=== PATIENT | male | born 1940 | race Caucasian/White ===

== ENCOUNTER 2017-03-04 17:50 | Emergency (ER) | payer MEDICARE, OTHER ==
[~2017-03-04] VITALS: Ht 172.7 cm; Wt 70.9 kg
[~2017-03-04 17:50] MED LIST: ASPI81TA2 PO; MTP50TCR PO; [UNRECOGNIZED DRUG - CODE] PO; [UNRECOGNIZED DRUG - CODE] PO
[2017-03-04 18:26] VITALS: BP 138/76; PULSE 76; RESP 16; O2SAT 95
--- NOTE | 2017-03-04 18:36 | ED.REPORT ---
HPI-Neurologic Deficit Date of Service Mar 04, 2017 ED Provider: Dr. Lopes A 77 year old male with a history of stroke,seizures, and HTN presents to the ED from Dr. Negrito Brody's office after undergoing an MRI that showed large subacute hematoma involving right parietal-temporal lobes. Hematoma may be related to hypertensive bleed, but the patient was sent to the ED to make sure that everything is Ok. The patient originally saw Dr. Brody today with concern for TIA because of a severe headache that onset one week ago and was accompanied by confusion, symptoms having since been resolved. Patient denies any confusion right now. The patient had a stroke on 02/02/2017, the patient being found by his in bed at 1500 with confusion but no left-sided weakness. Nursing Notes Stated Complaint: HAD MRI EARLIER, WAS TO LD BY DR BRODY TO COME Chief Complaint: General Complaint Allergies: Coded Allergies: No Known Allergies (Unverified Allergy, Unknown, 03/04/17) Scheduled Aspirin-Expunged Drug, Do Not Renew! (Aspirin-Expunged Drug, Do Not Renew!) 81 Mg Tab 81 MG PO DAILY Metoprolol Suc-Expunged Drug, Do Not Renew! (Metoprolol Suc-Expunged Drug, Do Not Renew!) 50 Mg Tber 50 MG PO DAILY TELMISARTAN-Expunged Drug, Do Not Renew! (Micardis-Expunged Drug, Do Not Renew! ) 80 Mg Tab 80 MG PO DAILY hyDRALazine-Expunged Drug, Do Not Renew! (hyDRALazine-Expunged Drug, Do Not Renew!) 25 Mg Tablet 25 MG PO TID General Time Seen by Provider: 18:36 Chief Complaint Other (Headache) Hx Obtained From: Patient, Spouse Arrived By: Walk-in Sudden in Onset?: No Onset Occurred: 1 week ago Symptom Duration: Duration unknown Progression Since Onset: Resolved Severity: Current: No pain currently Severity: Maximum: No pain Recent Healthcare: Recent doctor visit ([facility] ) Risk Factors NIH Stroke Scale Level of Consciousness: Alert and responsive (0) Ask Month & Age: Both questions right (0) Open/Close Eyes/Hand Drafter Castings: Performs both tasks (0) Visual Hernandez: No visual loss (0) Facial Palsy: Normal symmetry (0) Right Arm Motor Drift (10s): No drift 10 sec (0) Left Arm Motor Drift (10s): No drift 10 sec (0) Right Leg Motor Drift (5s): No drift 5 sec (0) Left Leg Motor Drift (5s): No drift 5 sec (0) Limb Ataxia FNF/Heel-Sawant: No ataxia (0) Sensation (Arms/Legs/Face): No sensory loss (0) Language Aphasia: No aphasia, normal (0) Dysarthria: No dysarthria, normal (0) Extinction/Inattention: No exctinct/inattent (0) NIHSS Score: 0 Time NIHSS Performed: 18:36 Date NIHSS Performed: Mar 04, 2017 Past Medical History Past Medical History Notes: Patient sees Dr. Negrito Brody,neurologist, for seizure treatment. Past Medical History Mild right sided tremor. Stroke on 02/02/2017. Occured at home, not in hospital. TIA. Patient takes Levetiracetam-po 500mg, 1 2x/day. Hydralazine 25mg, 1 3x/day. Metoprolol SUC 100mg, [toprol XL 100mg] 1/2 1x /day Micardis 40mg, 2 1x day Reports: Hypertension, Stroke Reports: Seizure disorder (Patient reports seizures denies that he has epilepsy. Takes medication for seizures.) Past Surgical History none reported. Ambulatory Status Independent Review of Systems Review of Systems Note: VIsited ED for concerning MRI result. Constitutional: Denies: Chills, Fever Neurologic: Reports: Headache (1 week ago, but since resolved.), Denies: Confusion Complete sys rev & neg: except as marked. Physical Exam Initial Vital Signs Vital Signs (First) Date Time Temp Pulse Resp B/P Pulse Ox O2 Delivery O2 Flow Rate FiO2 03/04/17 18:26 36.8 76 16 138/76 95 Room Air Initial VS: Reviewed General/Constitutional: Awake, Alert Head / Eyes: Atraumatic, Normocephalic, PERRL, EOMI Respiratory / Chest: Atraumatic, Breath sounds NL, Breath sounds = bilat, No respiratory distress, No rales, No rhonchi, No wheezing Cardiovascular: Heart rate NL, Regular rhythm, Heart sounds NL, No gallop, No murmurs, No rubs Neurologic: Oriented X3, Speech NL Neurologic exam is normal. NIH stroke Scale Score is Zero. ENT: Atraumatic, Airway patent Neck: Atraumatic, Non-tender Abdomen: No guarding, No rebound Upper Extremity / MS: No swelling, No edema Skin: Atraumatic, Color NL, Warm, Dry Interpretation & Diagnostics Lab Results Interpretation Result Diagram: 03/04/170 03/04/171899 Test 03/04/17 19:00 03/04/17 19:18 White Blood Count 6.6th/mm3 (3.8-10.1) Red Blood Count 4.68mil/mm3 (4.40-5.80) Hemoglobin 14.6g/dL (13.8-17.2) Hematocrit 42.9% (41.0-50.0) Mean Corpuscular Volume 91.7fL (81-100) Mean Corpuscular Hemoglobin 31.2pg (27.0-35.0) Mean Corpuscular Hemoglobin Concent 34.0% (32.0-37.0) Red Cell Distribution Width 13.0% (12.3-15.4) Platelet Count 205bil/L (150-400) Neutrophils (%) (Auto) 76.3% (40-74) Lymphocytes (%) (Auto) 12.5% (14-46) Monocytes (%) (Auto) 9.0% (4-12) Eosinophils (%) (Auto) 1.7% (0-5) Basophils (%) (Auto) 0.3% (0-3) Prothrombin Time 10.4sec (8.1-12.5) Prothromb Time International Ratio 0.97ratio Sodium Level 132mEq/L (134-144) Potassium Level 4.2mEq/L (3.5-5.2) Chloride Level 96mEq/L (97-108) Carbon Dioxide Level 22mmol/L (18-29) Blood Urea Nitrogen 14mg/dL (8-27) Creatinine 0.77mg/dL (0.76-1.27) Estimat Glomerular Filtration Rate 104mL/min (>59) Glucose Level 129mg/dL (60-99) Calcium Level 9.8mg/dL (8.5-10.1) Total Bilirubin 0.8mg/dL (0.0-1.2) Aspartate Amino Transf (AST/SGOT) 20U/L (0-50) Alanine Aminotransferase (ALT/SGPT) 12U/L (0-44) Alkaline Phosphatase 46U/L (25-160) Total Protein 7.7g/dL (6.4-8.4) Albumin 4.7g/dL (3.4-5.0) Hold Purple Top Tube Received (Received) Hold Blue Top Tube Received (Received) Hold Red Top Tube Received (Received) Hold [place] Top Tube Received (Received) Hold Byrd Top Tube Received (Received) Lab Results Interpretation: PROCEDURE: MRI STROKE PROTOCOL ([id number]) IMPRESSION: Brain MRI 1.Large, subacute hematoma involving the right parietal-temporal lobes. Hematoma may be related to hypertensive bleed, however, neither underlying neoplastic process nor vascular malformation can be excluded without follow up imaging. 2. Mild, diffuse mild loss. 3. Mild to moderate periventricular and subcortical white matter chronic microvascular ischemic changes. 4. Old, small, left thalamic lacunar infarct. BRAIN MR ANGIOGRAM: Negative examination. NECK MR ANGIOGRAM: Negative examination. Findings telephoned to Dr. Negrito Brody on 03/04/17 at 1619 hours. Dictated by: Lauryn Hope MD, PhD on 03/04/2017 at 16:05. Approved by:Lauryn Hope MD, PhD on 03/04/2017 at 16:26. Re-Eval/Medical Decision Med Decision/Clinical Course 77-year-old male was evaluated by his neurologist today. Evidently he had a confusional episode last week associated with headache. Symptoms resolved. His neurologist Dr. Brody performed a stroke protocol MRI. The MRI demonstrated a large right temporoparietal intraparenchymal hemorrhage. He is referred to her department for definitive disposition. Mr. Lemus is awake alert oriented 4. His GCS is 15. His stroke scale is 0. His vitals have been stable. He is not excessively hypertensive. His blood pressure currently 138 systolic. Beyond that his exam is very benign. MRI results reviewed. Case discussed with Dr. Phoenix [facility] neurologist. We will be transferring Mr. Lemus to the [facility] emergency department with accepting M.Chrissy. in the ER is Dr. Pina. We will push the MRI results and send copies of the labs as well. Source of Hx: Old records Re-Evaluation/Progress #1: Time of Eval: 18:36 Re-Evaluation/Progress Note: Explaind Dr. Brody's MRI result to the patient. Re-Evaluation/Progress #2: Time of Eval: 19:21 Re-Evaluation/Progress Note: Rechecked patient and explained plan to transfer to [facility]. Patient uunderstands and agrees with the plan. All questions addressed. Consultation #1: Call Returned at: 19:07 Combination Machine Tender: Agrees with eval, Agrees with plan Note: Discussed patient case with Dr. Jamila Phoenix, Nuerologist, at [facility] who agrees to have patient transferred to [facility]. Consultation #2: Call Returned at: 19:19 Note: Discussed patient case with [facility]. Dr. Carmen Pina will be accepting physician at [facility]. . Counseled Regarding: Diagnosis, Lab results, Need for follow-up, When/why to return to ED Discharge & Departure Shift Change Sign-Out Response to Therapy: Improved Impression: Primary Impression: Intraparenchymal hematoma of brain Encounter type: initial encounter Laterality: right Loss of consciousness presence/duration: without LOC Qualified Code: S06.340A - Traumatic hemorrhage of right cerebrum without loss of consciousness, initial encounter Disposition: Transfer, Acute Care Facility Transfer Requested at: 19:07 Call returned time Transfer Accepted: Yes Transfer Accepted at: 19:07 Transfer Reason: Higher level of care Spoke with: Specialty physician (Dr. Jamila Phoenix) Patient Status: Stable Patient Informed: Yes Discharge Condition All VS Reviewed: Yes Condition: Stable Referrals: NOPCP (PCP) Crit Care Except Billable Proc Time Spent: 30-74 minutes (60 minutes) Songibe Attestation Portions of this note were transcribed by Jason Kumar. I, Dr. Lopes personally performed the history, physical exam and medical decision-making; I reviewed and confirmed the accuracy of the information in the transcribed note. Signed by: Enoc Hood, 03/04/2017, 1935. copies to: Negrito Brody MD, Todd P DO Mar 04, 2017 18:36 Jason Kumar Mar 04, 2017 18:45
[2017-03-04 19:09] LABS: BASOPHILS % (AUTO) 0.3 % (0-3); EOSINOPHILS % (AUTO) 1.7 % (0-5); Mean Corpuscular Hemoglobin 31.2 pg (27.0-35.0); Mean Corpuscular Volume 91.7 fL (81-100); NEUTROPHILS % (AUTO) 76.3 % (40-74); Platelet Count 205 bil/L (150-400)
[2017-03-04 19:26] LABS: INR 0.97 ratio
[2017-03-04 19:54] VITALS: BP 147/74; PULSE 77; RESP 16; O2SAT 98
[2017-03-04 19:55] VITALS: BP 147/74; PULSE 77; RESP 16; O2SAT 98
== END 2017-03-04 20:00 | disposition short-term general hospital (02) ==
LOC: SED 17:50
DX: S06.340A Traumatic hemorrhage of right cerebrum without loss of consciousness, initial encounter (principal); X58.XXXA Exposure to other specified factors, initial encounter; Y93.9 Activity, unspecified; Y99.8 Other external cause status; Y92.9 Unspecified place or not applicable; I10 Essential (primary) hypertension; Z86.69 Personal history of other diseases of the nervous system and sense organs; Z86.73 Personal history of transient ischemic attack (TIA), and cerebral infarction without residual deficits; Z79.82 Long term (current) use of aspirin